=== PATIENT | male | born 1950 | race Caucasian/White ===

== ENCOUNTER 2016-07-06 15:48 | Inpatient (IN) | payer OTHER ==
[~2016-07-06] VITALS: Ht 174 cm; Wt 84.6 kg
[~2016-07-06 15:48] MED LIST: AMLODIPINE BESY10 MG PO; ATENOLOL100 MG PO; EXCEDRIN EXTRA STREN PO; FLOMAX0.4 MG PO; GLIPIZIDE5 MG PO; HYDROXYZINE HCL25 MG PO; IBUPROFEN600 MG PO; LANTUS SOL100 UNITS/ SC; LISINOPRIL40 MG PO; METHADONE HCL5 MG PO; OMEPRAZOLE20 M1 PO; TERAZOSIN HCL10 MG PO; ZANTAC 150 MAX150 MG PO
[2016-07-07] VITALS (9 sets, daily range): BP systolic 103–129; BP diastolic 61–74
[2016-07-07] MEDS ORDERED: KLOR-CON 1010 MEQ PO (07:03)
--- NOTE | 2016-07-07 07:13 | NUR ---
PREOP INSTRUCTIONS GIVEN TO PATIENT AND HIS . QUESTIONS ANSWERED. PATIENT VERBALIZES UNDERSTANDING. CONSENT CONFIRMED. EXTREMITY MARKED. NO PREOP MEDICATIONS GIVEN. JEN GALLEGO/RENE ON. IN ROOM. KB
--- NOTE | 2016-07-07 10:06 | Postoperative Progress Note ---
Postop Progress Note Preoperate Diagnosis: arthritis left hip Postoperative Diagnosis: same Surgeon: jim Anesthesia: General ETT Findings: arthritis left hip Procedure: left hip replacement Complications? No Condition: Stable EBL: 300cc Fluid(s): 1500cc Blood Administered: 0 Specimen(s) removed? Yes Specimen removed/disposition: left femoral head Grafts or Implants? Yes Graft/Implant type: left corby . (See nursing notes for details of grafts/implants)
--- NOTE | 2016-07-07 11:37 | NUR ---
PT. UP TO FLOOR AT 1125. STATES SEVERE PAIN. PENDING ORDER REC. FROM PHARMACY. PT. TO BE ON CONTINUOUS CAPNOGRAPHY. RT. NOTIFIED. YIFAN
--- NOTE | 2016-07-07 12:04 | OPERATIVE REPORT ---
DATE OF SURGERY: 07/07/2016 SURGEON: NICOLETTE MORAN MD PREOPERATIVE DIAGNOSIS: 1. Arthritis of the left hip POSTOPERATIVE DIAGNOSIS: 1. Arthritis of the left hip PROCEDURE PERFORMED: 1. The operation proposed was left hip replacement; the operation performed was left hip replacement ESTIMATED BLOOD LOSS: 300 mL. COMPLICATIONS: None. PATHOLOGY SPECIMEN: Femoral head and neck. SURGICAL TECHNIQUE: The patient was taken to the operating room, was given general anesthetic. He was placed on his right side on the operating table with a pegboard to support him, and the entire left lower extremity, including the area about the hip and buttock, were prepped and draped in the usual sterile fashion. He had a slightly curving longitudinal incision made posterolaterally over the hip. It was carried down through subcutaneous tissue. The deep fascia and muscle were divided in line with the fibers. Sciatic nerve was identified and preserved. It was intact in good condition at the conclusion of the procedure. The patient had exposure of the posterior capsule and the piriformis tendon. The tendon was transected at the level of its insertion on the proximal femur and was tagged with a #2 FiberWire suture. The capsule was opened in a T-shaped fashion and the limbs of the capsule distally were tagged with #2 FiberWire suture. The hip was then dislocated. The femoral head and neck were resected after first placing a lottie suture on the most distal portion of the femur that I could access, and then measuring from there to the center of the femoral head, and using that as a reference point for later reconstruction of the femur. The patient, following resection of the femoral head and neck, then had resection of the major portion of the labrum. The acetabulum was exposed. It was reamed in a stepwise fashion up to a final 53 mm size, and this got us down to good, solid, secure bone. We inserted a 54 mm diameter cup into position, trying to duplicate the patient's natural anteversion and abduction, and then following placement of the cup, a single drill hole was made superiorly and the depth of the hole was measured, and a 30 mm self-tapping screw was placed in the hole and secured down. It was very secure, and with that we had good positioning and secure fixation of the cup. A neutral liner was inserted and seated down into position, and then the femur was further prepared by using a ------- osteotome for osteotomizing the lateral aspect of the distal portion of the femoral neck. The canal finder was inserted, and then we broached in a stepwise fashion up to a final #7 size, and the 7 broach was very secure. We used the calcar reamer to ream away the small remaining portion of the calcar. We then got the #7 standard offset femoral component, placed it down in position and seated it in place, and put on the +0 femoral head. With that, we measured back to our previously-placed marker suture. The centers of the femoral head with the marker suture was exactly the same as what we had prior to resection of the patient's own femoral head and neck. So we got the +0 head, seated it on the taper, using the femoral head impactor and gentle taps of the mallet, reduced the hip. Closed the capsule using #2 nonabsorbable braided suture, repaired the piriformis tendon with the same #2 nonabsorbable braided FiberWire suture, and then closed the deep fascia after checking the sciatic nerve to make sure it was intact and in good condition, which it was. We placed a couple of [id number] FiberWire sutures in the central portion of the fascial layer and then closed from top to bottom using a running and interrupted #1 Polysorb suture. The subcutaneous layer was closed with 2-0 Polysorb running suture, and the skin with subcuticular 3-0 Polysorb suture. Then he was dressed with Xeroform and ABD pads. The bandage was taped in place. The patient was placed in a knee immobilizer. He was rolled in a supine position. The leg lengths were checked and found to be appropriate, with close to exactly equal leg lengths on both sides as I could get, and within the limits of detection, which was probably within a few millimeters. The patient was then taken to the recovery room in a knee immobilizer and arrived there in stable condition.
--- NOTE | 2016-07-07 12:05 | DIAGNOSTIC IMAGING REPORT ---
PROCEDURE: XR HIP 2VW W W/O AP PELVIS-LT INDICATION: post op TECHNIQUE: AP view of the pelvis and hips with lateral view of the left hip. COMPARISON: None. FINDINGS: Left HIP: There is a total hip replacement on the left. No fracture or dislocation. PELVIS: Osseous pelvis is normal. IMPRESSION: 1. Negative pelvis and total left hip.
--- NOTE | 2016-07-07 12:47 | NUR ---
pt removed his NC while eating, entered room his eyes were closed and 02 89%. replaced NC and sats 95%. wctm
--- NOTE | 2016-07-07 13:14 | NUR ---
PT WAS TRASPORTED TO ACUTE CARE. PT D/C FROM PACU PT IS AWAKE AND ALERT. PT DENIES NAUSEA. PT STATES THAT HIS SEVERE LEFT HIP PAIN WENT DOWN TO MODERATE-MILD. VSS. LEFT HIP DRESSING IS CLEAN AND DRY. LEFT HIP X-RAYS WERE TAKEN IN PACU. REPORT GIVEN TO ACUTE CARE RN.
--- NOTE | 2016-07-07 22:24 | NUR ---
Cared for patient post op, having some retention. at approximately 1350 bladder scanned and straight cathed and returned 450 cc, again at 1800 also returned 400cc. patient just voided, denies discomfort
[2016-07-08 03:43] VITALS: BP 124/69
--- NOTE | 2016-07-08 06:15 | NUR ---
VSS. A&OX4. C/O SEVERE PAIN AT START OF SHIFT. MEDICATED WITH PERCOCET TWO TABS, TORADOL AND LATER ATIVAN 0.5MG, ALL EFFECTIVE. SLEEPING THROUGH MOST OF SHIFT. CAPNOGRAPHY IN PLACE, WNL. ASSISTED PT ONCE WITH REPOSITIONING IN BED. PT UP TO SIDE OF BED WITH MINIMAL ASSIST AND WALKER TO USE URINAL. TOLERATED WELL. SEE SHIFT ASSESSMENT. BED IN LOWEST POSITION. CALL LIGHT IN REACH. WCTM.
[2016-07-08 06:42] VITALS: BP 123/65
[2016-07-08 10:46] VITALS: BP 112/69
--- NOTE | 2016-07-08 12:44 | Progress Note ---
Subjective General VSS Afebrile WBC 7.7 Hgb 8.9 No c/o, pain already better than preop and is well controlled with PO meds. He has been walking with PT and would like to go home. DC home.
[2016-07-08] MEDS ORDERED: OXYCODONE/ACETA1 TA1 PO (12:51)
--- NOTE | 2016-07-08 12:52 | Provider's Discharge Care Plan ---
Problem, Goal, Plan Problem List 1. Arthritis of left hip
--- NOTE | 2016-07-08 12:52 | Provider's Discharge Care Plan ---
Problem, Goal, Plan Problem List 1. Arthritis of left hip
--- NOTE | 2016-07-08 15:06 | NUR ---
PT. DC'D HOME WITH VIA PRIVATE VEHICLE. GIVEN SIGNED RX AND DISCHARGE INSTRUCTIONS, STATES NO FURTHER QUESTIONS AT THIS TIME. IV'S DC'D AND CATHETER TIP INTACT. ESCORTED OUT BY [employer].
== END 2016-07-08 14:30 | disposition home or self-care (01) | DRG 470 ==
LOC: SCU SRH 07-07 05:49 → U SRH 07-07 07:30 → ACUTE3 SRH 07-07 11:30
PROVIDERS: ADMIT Orthopaedic Surgery
PROC: 0SRB0JA Replacement of Left Hip Joint with Synthetic Substitute, Uncemented, Open Approach (ICD-10-PCS; principal; 2016-07-07 07:30)
DX: M16.12 Unilateral primary osteoarthritis, left hip (principal); I10 Essential (primary) hypertension; E11.9 Type 2 diabetes mellitus without complications; Z79.4 Long term (current) use of insulin